=== PATIENT | male | born 1980 | race Caucasian/White ===

== ENCOUNTER 2018-03-11 01:09 | Emergency (ER) | payer SELFPAY ==
[~2018-03-11] VITALS: Ht 170.2 cm; Wt 94.4 kg
[2018-03-11 01:15] VITALS: TEMP 36.4; Ht 170.2 cm; Wt 94.4 kg
[2018-03-11] MEDS ORDERED: IBUP-1050 PO (01:16)
--- NOTE | 2018-03-11 01:26 | EMERGENCY ROOM VISIT NOTE ---
History Report prepared by Ed: Annika Vivar Under the Supervision of: Dr. Jacklyn Garcia D.O. First contact with patient: 01:11 Chief Complaint: ALCOHOL OVERDOSE Stated Complaint: ALCOHOL OVERDOSE History of Present Illness The patient is a 37 year old male who presents to the Emergency Room with complaints of episode of an alcohol overdose occurring just prior to arrival. The patient works as a ice cream truck driver. The patient was at a bar drinking prior to arrival. He denies any drug use. Apparently he left the bar with some people that he met. When they were pulled over by the police, the patient was asleep in the back of the car. Police called EMS to evaluate this patient and he was transported here. He denies any falls. He is from [place]. The patient denies any active medical problems. History limited secondary to intoxication. Source of History: patient History Limited By: intoxication Onset: just prior to arrival Position: other (generalized) Quality: other (alcohol intoxication) Timing: other (episode) Review of Systems ROS limited secondary to intoxication. Past Medical & Surgical Medical Problems: (1) No Known Active Medical Problems Family History Patient reports no known family medical history. Social History Smokeless Tobacco Use: No Alcohol Use: occasionally Drug Use: none Occupation Status: employed Current/Historical Medications Scheduled PRN Ibuprofen (Advil), 200-600 MG PO Q4H PRN for Pain Allergies Coded Allergies: No Known Allergies (Unverified , 03/11/18) Physical Exam Vital Signs Date Time Temp Pulse Resp B/P (MAP) Pulse Ox O2 Delivery O2 Flow Rate FiO2 03/11/18 06:04 88 16 131/90 97 03/11/18 05:11 83 03/11/18 04:00 79 16 135/57 95 Room Air 03/11/18 03:00 70 18 106/59 96 Room Air 03/11/18 02:00 79 16 109/69 96 Room Air 03/11/18 01:15 78 03/11/18 01:15 36.4 85 18 130/93 96 Room Air Physical Exam General: Slurred speech and smells of alcohol. HEENT: Head - normocephalic and atraumatic Pupils are 4 mm and equal, round, and reactive to light. Extraocular eye muscles are intact, and sclera are anicteric. Nose - moist nasal mucosa without discharge. Mouth - moist buccal mucosa. Oropharynx is nonerythematous and there is no tonsillar exudate or edema noted. Neck: Supple; no JVD, nuchal rigidity, cervical lymphadenopathy. Heart: Tachycardic rate and regular rhythm. There is a normal S1 and S2 with no murmurs, clicks, or gallops appreciated. Lungs: Clear to auscultation bilaterally with no wheezes, rales, or rhonchi. Abdomen: Soft, completely nontender, nondistended, with good bowel sounds. There are no palpable pulsatile masses or hepatosplenomegaly. There is no guarding, rigidity, or rebound noted. Extremities: No evidence of cyanosis, clubbing, or edema. There are easily palpable peripheral pulses. Skin: warm and dry with good turgor and no rashes. Medical Decision & Procedures Laboratory Results 03/11/18 01:30 Test 03/11/18 01:30 Anion Gap 8.0 mmol/L (3-11) Est Creatinine Clear Calc Drug Dose 130.6 ml/min Estimated GFR () 128.7 Estimated GFR (Non- 111.1 BUN/Creatinine Ratio 10.8 (10-20) Calcium Level 7.8 mg/dl (8.5-10.1) Ethyl Alcohol mg/dL 298.0 mg/dl (0-3) Laboratory results per my review. Medications Administered Medications (Trade) Dose Ordered Sig/Amelia Route Start Time Stop Time Status Last Admin Dose Admin Potassium Chloride (Klor-Con M10) 20 meq STK-MED ONCE .ROUTE 03/11/18 05:56 03/11/18 05:57 DC 03/11/18 05:58 20 MEQ ED Course 0117: Past medical records reviewed. The patient was evaluated in room A9B. A complete history and physical exam was performed. The patient was placed in the prone position to avoid aspiration. They were observed on the potline monitor and pulse oximeter. Labs were drawn as above 0228: The patient is asleep and hemodynamically stable. 0347: The patient is sleeping. His vitals are stable. 0525: The patient was woken up. We are trying to locate his truck. 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 The patient seemed confused with those directions so we will let him sleep a little longer. 0554: The patient is requesting to take a taxi to his hotel so he can call his boss. He was instructed not to drive until after 2 pm. He is agreeable to plan. 0558: Upon reevaluation, the patient is resting. I discussed findings and results with him. He verbalized agreement of the treatment plan. The patient was discharged home. Medical Decision The patient is a 37 year old male who presents to the Emergency Room with complaints of episode of an alcohol overdose occurring just prior to arrival. Differential diagnosis includes alcohol overdose, drug intoxication, hypoglycemia, head injury. Lab results show: alcohol 298, potassium 3.1, glucose 112, normal renal function. The patient was brought to the emergency department after consuming too much alcohol. There were no obvious signs of trauma or complaints of pain. They were observed closely throughout the night and remained stable while here in the ER. The patient was allowed time to sober up prior to discharge. I had a conversation with the patient about the hazards of such excessive alcohol use. He was encouraged not to drive a vehicle until after 2 PM this afternoon because he would still be intoxicated. I have also suggested that he increase his potassium intake through his diet. Medication Reconcilliation Current Medication List: was personally reviewed by me Blood Pressure Screening Patient's blood pressure: Elevated blood pressure Blood pressure disposition: Elevated BP felt to be situational Impression Primary Impression: Alcohol overdose Additional Impression: Hypokalemia Scribe Attestation The scribe's documentation has been prepared under my direction and personally reviewed by me in its entirety. I confirm that the note above accurately reflects all work, treatment, procedures, and medical decision making performed by me. Departure Information Dispostion Home / Self-Care Forms HOME CARE DOCUMENTATION FORM, IMPORTANT VISIT INFORMATION Patient Instructions ED Overdose Alcohol, Hypokalemia Vielka Manzanares [facility] Additional Instructions Avoid such excessive alcohol use in the future. Tylenol 650 mg every 6 hours for headache. Drink plenty of fluids and take a bland diet today. Return to the emergency department for worsening symptoms or any medical concerns. You will not be able to drive your truck until after 2 PM this afternoon. You should increase foods that contain potassium Problem Qualifiers Primary Impression: Alcohol overdose Encounter type: initial encounter Injury intent: accidental or unintentional Qualified Codes: T51.91XA - Toxic effect of unspecified alcohol , accidental (unintentional), initial encounter
[2018-03-11 02:11] LABS: CALCIUM 7.8 mg/dl (8.5-10.1); CREATININE 0.84 mg/dl (0.60-1.40); POTASSIUM 3.1 mmol/L (3.5-5.1)
[2018-03-11] MEDS ORDERED: POTASSIUM CHLORIDE 20 MEQ TABCR PO STA (05:05)
[2018-03-11] MEDS ORDERED: POTASSIUM CHLORIDE 10 MEQ TABCR ONE (05:56)
[2018-03-11 06:04] VITALS: BP 131/90; PULSE 88; O2SAT 97
== END 2018-03-11 06:05 | disposition home or self-care (01) ==
LOC: EDBD 01:09 → C.EDA 01:11
DX: T51.91XA Toxic effect of unspecified alcohol, accidental (unintentional), initial encounter (principal); E87.6 Hypokalemia; Y90.8 Blood alcohol level of 240 mg/100 ml or more